=== PATIENT | male | born 1995 | race Two or more races ===

== ENCOUNTER → 2023-04-03 | Emergency (ER) | payer OTHER ==
[~2023-04-03] VITALS: Ht 167.6 cm; Wt 71.7 kg
== END | disposition home or self-care (01) ==
LOC: ER 19:55
DX: J06.9 Acute upper respiratory infection, unspecified (principal); R53.81 Other malaise; Z20.822 Contact with and (suspected) exposure to COVID-19

== ENCOUNTER → 2024-12-20 | Emergency (ER) | payer OTHER ==
[~2024-12-20] VITALS: Ht 165.1 cm; Wt 68.0 kg
== END | disposition home or self-care (01) ==
LOC: ER 09:37
DX: J03.80 Acute tonsillitis due to other specified organisms (principal)

== ENCOUNTER 2025-11-12 11:54 | Emergency (ER) | payer OTHER ==
[~2025-11-12] VITALS: Ht 165.1 cm; Wt 59.0 kg
[2025-11-12] MEDS ORDERED: 0.9 % SODIUM CHLORIDE 1,000 ML IV STA (13:14)
[2025-11-12] MEDS ORDERED: FAMOTIDINE/PF 20 MG/2 ML VIAL IV ONE (13:15)
[2025-11-12] MEDS ORDERED: ONDANSETRON HCL 2 MG/ML VIAL IV ONE (13:15)
[2025-11-12] MEDS ORDERED: KETOROLAC TROMETHAMINE 30 MG VIAL IU ONE (13:15)
[2025-11-12] MEDS ORDERED: DEXAMETHASONE SODIUM PHOSPHATE 4 MG/ML VIAL IM ONE (13:30)
[2025-11-12] MEDS ORDERED: DIPHENHYDRAMINE HCL 50 MG/ML VIAL 1ML IM ONE (13:30)
[2025-11-12] MEDS ORDERED: MAGNESIUM HYDROXIDE 400 MG/5 ML ML PO ONE (13:30)
[2025-11-12] MEDS ORDERED: LACTULOSE 20 G/30 ML BLIST.PACK PO ONE (13:30)
[2025-11-12] MEDS ORDERED: MINERAL OIL 30 ML BLIST.PACK PO ONE (13:30)
[2025-11-12 17:54] LABS: BASO % 0.7 % (0.1-1.2); EOS # 0.07 (0.04-0.54); EOS % 0.9 % (0.7-7.0); LYMPH # 0.76 (1.18-3.74); LYMPH % 9.3 % (19.3-53.1); MEAN PLATELET VOLUME 10.50 fl (9.4-12.4); MONO # 0.63 (0.24-0.82); MONO % 7.7 % (4.7-12.5); NEUT # 6.65 (1.56-6.13); NEUT % 81.2 % (34.0-71.1); RED CELL DISTRIBUTION WIDTH 11.5 % (11.6-14.4)
[2025-11-12 19:23] LABS: COVID-19 AG NEGATIVE (NEGATIVE)
[2025-11-12] MEDS ORDERED: GILTUSS COUGH-118 M1 PO (20:42)
[2025-11-12] MEDS ORDERED: AZITHROMYCIN500 MG PO (20:42)
[2025-11-12] MEDS ORDERED: ACETAMINOPHEN500 M1 PO (20:42)
== END 2025-11-12 21:30 | disposition home or self-care (01) ==
LOC: ER 11:55
PROVIDERS: General Practice
DX: J98.8 Other specified respiratory disorders (principal); Z20.822 Contact with and (suspected) exposure to COVID-19; Z87.09 Personal history of other diseases of the respiratory system
CPT/HCPCS: 36415; 96365; 96372; 99282; J1100; J1200; J1885; J2405; J3490; J7030